=== PATIENT | male | born 1985 | race Caucasian/White ===

== ENCOUNTER 2025-06-09 07:03 | Outpatient (OUT) | payer OTHER, SELFPAY ==
[2025-06-09 07:38] LABS: Hematocrit 45.0 % (42.0-54.0); Hemoglobin 15.7 g/dL (14.0-18.0); Immature Granulocytes Abs Auto 0.03 10^3/uL (0.00-0.03); Immature Granulocytes Pct Auto 0.3 % (0.0-0.5); Lymphocytes Absolute Auto 2.6 10^3/uL (1.2-3.8); Mean Corpuscular HGB Conc 34.9 g/dL (29.9-35.2); Mean Corpuscular Hemoglobin 30.0 pg (25.9-34.0); Mean Corpuscular Volume 85.9 fL (80.0-94.0); Platelet Count 276 10^3/uL (150-450); Red Blood Count 5.24 10^6/uL (4.70-6.10); White Blood Count 9.1 10^3/uL (4.0-11.0)
[2025-06-09 08:03] LABS: Alanine Aminotransferase 96 U/L (16-63); Albumin Globulin Ratio 1.3; Albumin Level 4.3 g/dL (3.4-5.0); Alkaline Phosphatase 97 U/L (46-116); Anion Gap 14.0; Aspartate Amino Transferase 36 U/L (15-37); Blood Urea Nitrogen 11.0 mg/dL (7.0-18.0); Calcium 8.9 mg/dL (8.5-10.1); Carbon Dioxide 30.0 mmol/L (21.0-32.0); Chloride 102 mmol/L (98-107); Cholesterol 115 mg/dL (<=200); Estimated GFR (African America >60 (>=60 mL/min/1.73m^2); Estimated GFR (Non-African Ame >60 (>=60 mL/min/1.73m^2); Free T3 3.09 pg/mL (2.18-3.98); Globulin 3.4 g/dL; Glucose 121 mg/dL (74-106); HDL Cholesterol 37 mg/dL (40-60); Potassium 4.0 mmol/L (3.5-5.1); Sodium 142 mmol/L (136-145); Thyroid Stimulating Hormone 1.571 uIU/mL (0.358-3.740); Total Protein 7.7 g/dL (6.4-8.2); Triglycerides 96 mg/dL (<=150); Uric Acid 4.7 mg/dL (3.5-7.2); VLDL CHOLESTEROL 19.2 mg/dL
== END 2025-06-09 07:04 | disposition home or self-care (01) ==
PROVIDERS: PCP Nurse Practitioner Family; Visit Provider Nurse Practitioner Family
DX: Z00.00 Encounter for general adult medical examination without abnormal findings (principal); Z12.5 Encounter for screening for malignant neoplasm of prostate
CPT/HCPCS: 36415; 80053; 80061; 83036; 83525; 84436; 84443; 84481; 84550; 85025; G0103